=== PATIENT | female | born 1945 | race Caucasian/White ===

== ENCOUNTER → 2018-04-30 | Outpatient (CLI) | payer MEDICARE, BC ==
[~2018-04-30] MED LIST: ASPIR-LOW81 MG PO; AUGMENTIN XR 101 TER PO; AVALIDE PO; CALCIUM600 MG PO; CARVEDILOL; CELEXA 20MG20 MG/TAB PO; CLINDAMYCIN300 MG PO; COREG12.5 MG PO; DIOVAN HCT 25 M1 TA1 PO; DIOVAN320 MG PO; EFFEXOR-XR150 MG PO; LIPITOR 80MG80 MG PO; PERCOCET 325 MG1 TA2 PO; SIMVASTATIN40 MG PO
== END ==
LOC: MC.RAD 08:35
DX: Z12.31 Encounter for screening mammogram for malignant neoplasm of breast (principal); N64.89 Other specified disorders of breast

== ENCOUNTER → 2018-05-05 | Outpatient (CLI) | payer MEDICARE, BC | LOC: MC.RAD 07:30 | DX: N64.89 Other specified disorders of breast (principal) | CPT/HCPCS: G0279 ==

== ENCOUNTER 2019-03-17 06:40 | Observation (INO) | payer MEDICARE, BC ==
[~2019-03-17] VITALS: Ht 147.3 cm; Wt 70.0 kg
[2019-03-17 07:38] LABS: CALCIUM 9.7 mg/dL (8.4-10.2); CREATININE, serum 0.95 (0.52-1.25); POTASSIUM 4.4 mmol/L (3.4-5.0)
[2019-03-17 07:39] LABS: BASO # 0.1 (0.0-0.2); BASO % 0.7 % (0.0-2.0); EOS # 0.3 (0.0-0.7); EOS % 3.4 % (0-4.0); HEMOGLOBIN 14.2 g/dl (12.5-16.0); LYMPH # 2.4 (1.2-3.4); LYMPH % 29.4 % (20.0-51.0); MEAN CELL VOLUME 93 fl (80.0-100.0); MEAN CORPUSCULAR HEMOGLOBIN 30 pg (27.0-31.0); MEAN CORPUSCULAR HGB CONC 32 g/dl (33.0-37.0); MEAN PLATELET VOLUME 10.6 fl (7.4-10.4); MONO # 0.5 (0.1-0.6); PLATELET COUNT 260 K/mm3 (130-400); RED BLOOD COUNT 4.75 M/mm3 (4.10-5.30); REDCELL DISTRIBUTION WIDTH-CV 13.1 % (11.5-14.5)
[2019-03-17 11:48] LABS: ALBUMIN 4.1 gm/dL (3.5-5.0); BILIRUBIN UNCONJUGATED 0.4 mg/dL (0.0-1.1); BILIRUBIN,TOTAL 0.4 mg/dL (0.0-1.0); TOTAL PROTEIN 7.2 gm/dL (6.4-8.2)
[2019-03-17 14:49] VITALS: BP 140/75; PULSE 89; TEMP 98.6
[2019-03-17] MEDS ORDERED: FOSAMAX 70MG TA70 MG PO (15:20)
[2019-03-17] MEDS ORDERED: COZAAR100 MG PO (15:21)
--- NOTE | 2019-03-17 15:30 | NUR ---
Pt arrived into room 313 at this time. She is A/O x4. Her breathing is even and unlabored on RA. Pt denies difficulty breathing. No pain at this time. Pt does report a headache. No dizziness present. Pt denies N/V. Pt drank water for this nurse without any complications/coughing or drooling. Neuro checks intact. IV to L hand free from complications. POC discussed with patient who verbalizes understanding. No needs at this time. Call light within reach.
[2019-03-17] MEDS ORDERED: DESYREL 50MG50 MG PO (15:54)
[2019-03-17] MEDS ORDERED: ALDACTONE 25MG25 M1 PO (15:54)
[2019-03-17] MEDS ORDERED: LEXAPRO20 MG PO (15:56)
[2019-03-17] MEDS ORDERED: KLOR-CON SPRIN10 MEQ PO (15:56)
[2019-03-17] MEDS ORDERED: K-DUR 10 MEQ T10 MEQ PO (15:57)
--- NOTE | 2019-03-17 16:06 | NUR ---
Attempted to call Dr. Gaines for consult, no answer. Answering machine full.
[2019-03-17 16:13] VITALS: BP 131/62; PULSE 83; TEMP 98.5
--- NOTE | 2019-03-17 18:58 | NUR ---
Report received from KEENA Maldonado
[2019-03-17 19:13] VITALS: BP 127/63; PULSE 95; TEMP 98.2
--- NOTE | 2019-03-17 22:00 | NUR ---
Resting in bed. Assessment complete. Lungs clear. Heart sounds normal. Bowels active x4. Pulses strong throughout. Facial/throat edema noted +1. Patient reports swelling has decreased. Denies difficulty breathing. INT left hand without complications. Denies pain. Denies needs at this time. Suicidal questions asked. Patient reports yes to all question except for she will not carry out plan. Discussed with patient-reports has dementia, patient takes care of . was having a difficult day with memory and patient thought about suicide that day only. Denies being actively suicidal. States "was just frustrated." Spoke with house supervisior, KEENA Jang. Patient does not need sitter at this time. Added social service referral for patient to seek help with taking care of .
[2019-03-17 23:44] VITALS: BP 117/58; PULSE 82; TEMP 98.2
--- NOTE | 2019-03-18 01:13 | NUR ---
Resting in bed. Denies needs. Call light in reach.
[2019-03-18 04:01] VITALS: BP 103/59; PULSE 79; TEMP 97.9
--- NOTE | 2019-03-18 05:12 | NUR ---
Patient had uneventful night. Reports "I feel like my swelling has gone down." Resting in bed this AM. Call light in reach.
[2019-03-18 06:22] LABS: BASO % 0.1 % (0.0-2.0); GRAN % 84.5 % (42.2-75.2); HEMATOCRIT 39.4 % (37.0-47.0); HEMOGLOBIN 12.9 g/dl (12.5-16.0); LYMPH # 1.5 (1.2-3.4); LYMPH % 12.2 % (20.0-51.0); MEAN CELL VOLUME 91 fl (80.0-100.0); MEAN CORPUSCULAR HEMOGLOBIN 30 pg (27.0-31.0); MEAN CORPUSCULAR HGB CONC 33 g/dl (33.0-37.0); MEAN PLATELET VOLUME 11.2 fl (7.4-10.4); MONO # 0.3 (0.1-0.6); MONO % 2.4 % (1.7-9.3); PLATELET COUNT 254 K/mm3 (130-400); RED BLOOD COUNT 4.31 M/mm3 (4.10-5.30); REDCELL DISTRIBUTION WIDTH-CV 13.1 % (11.5-14.5)
--- NOTE | 2019-03-18 06:51 | NUR ---
Report given to KEENA Fritz
[2019-03-18 07:01] LABS: CALCIUM 9.2 mg/dL (8.4-10.2); CREATININE, serum 0.94 (0.52-1.25); POTASSIUM 4.1 mmol/L (3.4-5.0)
[2019-03-18 07:45] VITALS: BP 137/61; PULSE 70; TEMP 98.3
--- NOTE | 2019-03-18 08:15 | NUR ---
Pt assessment complete. Pt laying comfortably in bed. Without pain or discomfort. A&O x4. IV to CDI. Needs met. Call light within reach.
[2019-03-18] MEDS ORDERED: AMOXICILLIN 8751 TAB PO (09:22)
[2019-03-18] MEDS ORDERED: PREDNISONE20 MG PO (09:25)
--- NOTE | 2019-03-18 10:02 | NUR ---
Initial visit; Patient thanked M[employer] Reader for looking in on her and offering God's blessings and keeping her in [employer]'s prayers.
--- NOTE | 2019-03-18 10:14 | NUR ---
IVETT met with the patient to discuss discharge plan. The patient lives outside of [place] with her , Bud (ph#[phone]), and their [id number] grandson (Jesse). She states that her has advanced dementia and that she is his caregiver. She states that her grandson also helps and looks out for him. She has two children that lives nearby. Her daughter, Kalani ([id number]#[phone]), lives in [place] and her son, Amando, lives in [place]. She reports independence with ADLs and does not have any DME. Her PCP was Dr. Deric Tejeda, but she states that she is switching to Dr. Lee. She receives her medications at [facility]. She reports no difficulties obtaining her meds. The patient does not have advanced directives completed, but she was interested in obtaining a form for DPOA-HC. IVETT provided. The patient plans to return home with her and grandson upon discharge. The patient's RN, Catrina, notified IVETT of the patient having depression and past thoughts of suicide. IVETT discussed this with the patient. She states that she has had thoughts of suicide in the past, when she gets overwhelmed with her . She states that has a spare room in her home now that she will go to when she needs to de-stress. She states that she used to speak to a psychologist at [facility], but that he has retired. IVETT discussed getting established with someone new. The patient reports that the psychologist she used to speak to gave her a list of different providers and that she was not interested in getting set up with someone new now. IVETT also discussed different services for her ; such as home health, respite care, and private duty services. The patient's reports that she is aware of these services, but she is not interested in them at this time. The patient had no other questions or concerns for IVETT. No additional needs at this time.
--- NOTE | 2019-03-18 10:45 | NUR ---
Reviewed discharge paperwork with patient, patient verbalized understanding. Went doc with personal belongings. Questions answered. Denies any pain or discomfort. student life coordinator removed IV, catheter intact. Gauze and medical tape applied to site. threat monitoring analyst removed. Patient stated was on his way to [facility]. This nurse walked with patient to elevator.
--- NOTE | 2019-03-18 13:56 | NUR ---
Primary nurse was assisted with [id number] patient care by [employer] [facility] Amanda Mercado and [employer] instructor Keily Perla RN-.
== END 2019-03-18 10:53 | disposition home health service (06) ==
LOC: COL.ER 06:40 → MEDICAL 11:33
PROVIDERS: Emergency Medicine; ADMIT Hospitalist
DX: T78.3XXA Angioneurotic edema, initial encounter (principal); I10 Essential (primary) hypertension; F32.9 Major depressive disorder, single episode, unspecified; E78.5 Hyperlipidemia, unspecified; M81.0 Age-related osteoporosis without current pathological fracture; I65.23 Occlusion and stenosis of bilateral carotid arteries; Z79.82 Long term (current) use of aspirin; Z79.52 Long term (current) use of systemic steroids; Z90.710 Acquired absence of both cervix and uterus; Z90.49 Acquired absence of other specified parts of digestive tract; Z88.2 Allergy status to sulfonamides
CPT/HCPCS: 99239; A4216; G0378; J0696; J1200; J1650; J2543; J2920; J2930; J7030; Q9967

== ENCOUNTER → 2019-04-21 | Outpatient (CLI) | payer MEDICARE, BC ==
[~2019-04-21] MED LIST changes: +ALDACTONE 25MG25 M1 PO; +AMOXICILLIN 8751 TAB PO; +COZAAR100 MG PO; +DESYREL 50MG50 MG PO; +FOSAMAX 70MG TA70 MG PO; +K-DUR 10 MEQ T10 MEQ PO; +KLOR-CON SPRIN10 MEQ PO; +LEXAPRO20 MG PO; +PREDNISONE20 MG PO
== END ==
LOC: COL.RAD 14:01
DX: R22.1 Localized swelling, mass and lump, neck (principal)

== ENCOUNTER 2020-09-20 20:45 | Emergency (ER) | payer MEDICARE, BC ==
[~2020-09-20] VITALS: Ht 147.3 cm; Wt 63.6 kg
[2020-09-20 22:58] VITALS: BP 167/87; PULSE 82; TEMP 97.8
== END 2020-09-20 23:00 | disposition home or self-care (01) ==
LOC: COL.ER 20:45
DX: M54.2 Cervicalgia (principal); M79.641 Pain in right hand; M79.642 Pain in left hand; I10 Essential (primary) hypertension; E78.00 Pure hypercholesterolemia, unspecified; Z79.82 Long term (current) use of aspirin; Z79.899 Other long term (current) drug therapy; W10.9XXA Fall (on) (from) unspecified stairs and steps, initial encounter

== ENCOUNTER → 2021-10-09 | Outpatient (CLI) | payer MEDICARE, BC | LOC: MC.RAD 11:20 | DX: Z12.31 Encounter for screening mammogram for malignant neoplasm of breast (principal) ==